=== PATIENT | female | born 1955 | race African-American/Black ===

== ENCOUNTER → 2019-08-17 | Outpatient (CLI) | payer BC ==
--- NOTE | 2019-08-17 16:11 | RADIOLOGY REPORT (SQ) ---
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 TECHNIQUE: CT scan of the abdomen and pelvis performed without intravenous or oral contrast. Images reviewed with lung, soft tissue, and bone windows. Reconstructed coronal and sagittal MPR images revi ewed. All images stored on PACS. All CT scanners at this facility use dose modulation, iterative reconstruction, and/or weight based d osing when appropriate to reduce radiation dose to as low as reasonably achievable (ALARA). [facility]: Dose Right [facility]: CareDose [facility]: Dose Right [facility]: Teradose 4D [facility]: Syn[employer] Wireless RADIATION DOSE: mGy. LIMITATIONS: None. FINDINGS: LOWER CHEST: See separate report of the CT of the chest. NON-CONTRASTED LIVER, SPLEEN, ADRENALS: Evaluation limited by lack of IV contrast. No identified sign ificant masses. PANCREAS: No masses. No peripancreatic inflammatory changes. GALLBLADDER: No identified stones by CT criteria. No inflammatory changes to suggest cholecystitis. RIGHT KIDNEY AND URETER: No suspicious masses. Assessment limited by lack of IV contrast. Interpolar cyst. Scattered punctate calcifications likely nonobstructing stones and/or vascular calcifications . No hydronephrosis or hydroureter. LEFT KIDNEY AND URETER: No suspicious masses. Assessment limited by lack of IV contrast. No definit e stones. Likely vascular calcifications. No hydronephrosis or hydroureter. AORTA AND RETROPERITONEUM: Aortoiliac atherosclerosis without aneurysm. Aneurysm. No retroperitoneal masses or adenopathy. BOWEL AND PERITONEAL CAVITY: Scattered colonic diverticula. No evidence of intestinal obstruction. No focal bowel wall thickening. APPENDIX: Normal. PELVIS, BLADDER, AND ABDOMINAL WALL:Decompressed urinary bladder. No lymphadenopathy. No pelvic arpita e fluid. BONES: No acute bony abnormality. No discrete lytic or blastic osseous lesions. OTHER: No other significant finding. IMPRESSION: 1. No evidence of intra-abdominal/pelvic metastatic disease on this noncontrast exam. 2. Please see same-day chest CT for detailed findings above the diaphragm. COMMENT: Quality ID # 436: Final reports with documentation of one or more dose reduction techniques (e.g., Automated exposure control, adjustment of the mA and/or kV according to patient size, use of iterative reconstruction technique) TECHNICAL DOCUMENTATION: JOB ID: [id number] [employer]- All Rights Reserved Reading location - IP/workstation name: [email or web address]
--- NOTE | 2019-08-17 16:17 | RADIOLOGY REPORT (SQ) ---
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 TECHNIQUE: CT scan performed of the chest without intravenous contrast. Images reviewed with lung, soft tissue and bone windows. Reconstructed coronal and sagittal MPR images reviewed. All images st ored on PACS. All CT scanners at this facility use dose modulation, iterative reconstruction, and/or weight based d osing when appropriate to reduce radiation dose to as low as reasonably achievable (ALARA). [facility]: Dose Right [facility]: CareDose [facility]: Dose Right [facility]: Teradose 4D [facility]: Smart [employer] RADIATION DOSE: CT Rad equipment meets quality standard of care and radiation dose reduction techniq ues were employed. CTDIvol: 15.3 - 17.5 mGy. DLP: 1453 mGy-cm. mGy. LIMITATIONS: No technical limitations. FINDINGS: LUNGS AND PLEURA: No masses, infiltrates, or pneumothorax. No pleural effusions or pleura l calcifications. HILAR AND MEDIASTINAL STRUCTURES: No identified masses or abnormal nodes. No obvious aneurysm. HEART AND VASCULAR STRUCTURES: No aneurysm. Normal heart size. Scattered coronary atherosclerosis. No pericardial effusion. UPPER ABDOMEN: No significant findings. Limited exam. THYROID AND OTHER SOFT TISSUES: Unremarkable thyroid. There is asymmetric soft tissue density and sk in thickening involving the right breast. There are focal low-attenuation collections within the rig ht posterior chest and right axilla, largest measuring up to 4.2 cm. There is an internal fat fluid level within the larger component. Enlarged right axillary lymph node measuring up to 16 mm (series 2, image 20). BONES: No acute bony abnormality. No discrete lytic or blastic osseous lesions. HARDWARE: None in the chest. OTHER: No other significant findings. IMPRESSION: 1. Asymmetric soft tissue density and skin thickening involving the right breast, parti ally evaluated and compatible with given history of breast cancer. 2. Enlarged right axillary lymph node measuring up to 16 mm suspicious for metastatic disease. 3. Focal low-attenuation collections within the right posterior chest wall and axilla, largest measu ring 4.2 cm and possibly postprocedural related. Recommend correlation with surgical history. 4. No other evidence of intrathoracic metastatic disease. TECHNICAL DOCUMENTATION: JOB ID: [id number] Quality ID # 436: Final reports with documentation of one or more dose reduction techniques (e.g., Au tomated exposure control, adjustment of the mA and/or kV according to patient size, use of iterative reconstruction technique) 2010 [employer]- All Rights Reserved Reading location - IP/workstation name: [email or web address]-
--- NOTE | 2019-08-17 16:35 | RADIOLOGY REPORT (SQ) ---
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 RADIONUCLIDE AND DOSE: 21.3 millicuries Tc99m HDP. The route of agent administration: Intravenous. ADDITIONAL DRUGS AND DOSES: None. TECHNIQUE: Routine delayed images at 3 hour post radionuclide injection acquired of the bony skeleto n including anterior and posterior whole-body projections and additional focused images as needed. LIMITATIONS: None. FINDINGS: BONES: Symmetric uptake in the knees, ankles, shoulders, SI joints consistent with degener ative change. No significant areas of increased uptake. KIDNEYS: Symmetric excretion without obstruction. OTHER: No other significant finding. IMPRESSION: No evidence of occult fracture or metastatic disease. COMMENT: Quality measure 147: No available prior imaging studies for comparison TECHNICAL DOCUMENTATION: JOB ID: [id number] [employer]- All Rights Reserved Reading location - IP/workstation name: [email or web address]
== END ==
LOC: RAD 08:05
PROVIDERS: ATTEND Internal Medicine Hematology & Oncology
DX: C50.811 Malignant neoplasm of overlapping sites of right female breast (principal)
CPT/HCPCS: 78306; 71250; 74176; A9561; Q9969

== ENCOUNTER 2019-09-06 10:05 | Day surgery (SDC) | payer BC ==
[~2019-09-06 10:05] MED LIST: ACETAMINOPHEN 325 MG TABLET PO PRN; CEFAZOLIN SODIUM 1 GM in DEXTROSE 5%-WATER 50 ML IV PRN; RINGERS SOLUTION,LACTATED 1,000 ML IV PRN
[2019-09-06] MEDS ORDERED: LIDOCAINE 0.5% INJ-PF (5 MG/ML) 50 ML SDV ONE (11:50)
[2019-09-06] MEDS ORDERED: BACITRACIN INJ 50,000 UNIT VIAL ONE (11:51)
[2019-09-06] MEDS ORDERED: MIDAZOLAM HCL INJ 5 MG/1 ML VIAL ONE (11:55)
[2019-09-06] MEDS ORDERED: FENTANYL CITRATE INJ/PF 100 MCG/2 ML AMPUL ONE (11:55)
--- NOTE | 2019-09-06 13:32 | Discharge Summary ---
Discharge Summary (SDC) - Discharge Final Diagnosis: Stage III right breast cancer Date of Surgery: 09/06/19 Discharge Date: 09/06/19 Condition: Good Treatment or Instructions: May use port; allow Steri-Strips to fall off on their own; may shower in 48 hours can follow-up with [facility] [place] [facility] in 1 to 2 weeks Referrals: WALE YOUNGER MD [Primary Care Provider] - Discharge Diet: As Tolerated Discharge Activity: Activity As Tolerated Home Care Assistance: None Needed Report the Following to Your Physician Immediately: Shortness of Breath, Increase in Pain, Fever over 101 Degrees
--- NOTE | 2019-09-06 13:36 | Operative Report ---
Operative Report DATE OF SURGERY: 09/06/19 PREOPERATIVE DIAGNOSIS: Stage III right breast cancer POSTOPERATIVE DIAGNOSIS: Same OPERATION: 1. Ultrasound directed left subclavian Aayetd-z-Rgur catheter placement. 2. Interpretation of intraoperative ultrasound SURGEON: ZEHRA NEGRETE ANESTHESIA: Moderate Sedation TISSUE REMOVED OR ALTERED: None COMPLICATIONS: None ESTIMATED BLOOD LOSS: 5 cc INTRAOPERATIVE FINDINGS: See below PROCEDURE: The patient was taken the preop holding area to the cardiac catheterization lab where she is placed supine position arms tucked, neck prepped and draped sterile fashion. Surgical plan and surgical timeout conducted. We approached the left neck and subclavian area. The left neck was scanned with a variable frequency linear transducer. Findings were significant for a patent, compressible left internal jugular vein. The overlying skin was anesthetized 1% plain lidocaine. A isabel was made in the skin with a 15 blade, and a micro needle and wire threaded into the left internal jugular vein without incident. A suitable site for placement of port was chosen in the left subclavian position. The skin was anesthetized 1% plain lidocaine. A 3 cm incision was made parallel to the clavicle, and using electrocautery, a subcutaneous pocket was developed large enough to accommodate a single-chamber port. The catheter was then trimmed to the appropriate length, tunneled between the 2 incisions, attached to the port at one end with the plastic securing ring. The port was tucked into the left subclavian position. The micro wire was switched over to a conventional 0.030 guidewire using the micro introducer sheath. A 9 Serbian introducer and strip away sheath was threaded over the conventional guidewire, guidewire and introducer removed, and free catheter fragment threaded into the strip away sheath. The strip away sheath was removed leaving the catheter with the tip in the vein-superior vena cava junction. Was no kinking of the catheter. There was no evidence of ectopy. The catheter was flushed and aspirated and flushed again with heparinized saline. There was no kinking or catheter at the neck site either. We felt the operation was complete. Sponge and needle counts correct. Wounds closed with 3-0 Vicryl, benzoin and Steri-Strips. Patient tolerated the procedure well. Dr. Negrete dictating
[2019-09-06] MEDS ORDERED: OXYCODONE-ACETAMINOPHEN 5-325 MG TABLET ONE (13:42)
[2019-09-06] MEDS ORDERED: OXYCODONE-ACETAMINOPHEN 5-325 MG TABLET PO PRN (14:07)
[2019-09-06 15:10] VITALS: BP 142/96
--- NOTE | 2019-09-06 15:52 | RADIOLOGY REPORT (SQ) ---
EXAM DESCRIPTION: PORTACATH INSERTION COMPLETED DATE/TIME: 09/06/2019 1:58 pm REASON FOR STUDY: C50.811 RT BREAST CA C50.811 MALIGNANT NEOPLASM OF OVRLP SITES OF RIGHT FEMALE BR COMPARISON: None. FLUOROSCOPY TIME: 0.1 minute. 2 images saved to PACS. TECHNIQUE: Intra-operative images acquired during surgical procedure to evaluate progress. NUMBER OF IMAGES: 2 images. LIMITATIONS: None. FINDINGS: Images of the chest acquired during port placement. IMPRESSION: IMAGE(S) OBTAINED DURING PROCEDURE. COMMENT: Quality ID 145: Final reports for procedures using fluoroscopy that document radiation exp osure indices, or exposure time and number of fluorographic images (if radiation exposure indices are not available) Please consult full operative report of the attending physician for description of the procedure. TECHNICAL DOCUMENTATION: JOB ID: [id number] [employer]- All Rights Reserved Reading location - IP/workstation name: [email or web address]
== END 2019-09-06 15:10 | disposition home or self-care (01) ==
LOC: CCL 10:05
PROVIDERS: ATTEND Surgery
DX: C50.811 Malignant neoplasm of overlapping sites of right female breast (principal); M54.30 Sciatica, unspecified side; G47.30 Sleep apnea, unspecified; I10 Essential (primary) hypertension; E66.9 Obesity, unspecified; F17.210 Nicotine dependence, cigarettes, uncomplicated; Z88.6 Allergy status to analgesic agent; Z79.899 Other long term (current) drug therapy; Z79.51 Long term (current) use of inhaled steroids
CPT/HCPCS: 36561; 76937; 77001; C1752; J3490 ×2; J0690; J3010; J2250; J7060; J1644